=== PATIENT | male | born 2005 | race Caucasian/White ===

== ENCOUNTER 2024-07-18 20:43 | Emergency (ER) | payer BC, SELFPAY ==
[2024-07-18 20:45] VITALS: BP 134/89
--- NOTE | 2024-07-18 21:16 | ED.GENMED ---
History of Present Illness
General
Chief Complaint: Crisis Evaluation
Time Seen by Provider: 07/18/24 21:02
History of Present Illness
History of Present Illness:
TIME OF INITIAL ENCOUNTER: 9:10 PM
HPI: The patient was brought here by his father due to self-harm and suicidal ideation. The patient states that he had an argument or had issues with his girlfriend. He has no guns at home. The patient started punching himself. He did have a
partial hospitalization in the past. He denies any medical complaints.
EXAM:
GENERAL: Well appearing in no distress
HEENT: Moist oral mucosa
CARDIOVASCULAR: No murmurs, normal heart rate, regular rhythm, No chest wall tenderness
PULMONARY: No respiratory distress, breath sounds are clear and equal
ABDOMEN: Soft with no peritoneal signs, no tenderness
NEUROLOGIC: Excellent strength all extremities, no coordination deficits
PSYCHIATRIC: Appropriate mental status, normal insight and judgement, but has somewhat of a flat affect
EXTREMITIES: Nontender, no edema, moves all extremities equally
SKIN: No rash, no lesions
NUMBER AND COMPLEXITY OF PROBLEMS ADDRESSED AT THE ENCOUNTER
� Chronic conditions affecting care: No significant past medical history
� Acute Exacerbation and/or Progression of Chronic Illness: This is an acute problem
� Differential Diagnosis includes: Suicidal ideation, depression
AMOUNT AND/OR COMPLEXITY OF DATA TO BE REVIEWED AND ANALYZED
� I performed an independent evaluation of and my interpretation is:
EKG:
CT:
X-rays:
Laboratory Studies:
Other:
� Review of other/old records: No old records available for review in [facility]
� Clinical information was obtained by an independent historian: I spoke to the father at bedside
� Prescriptions/Medications Considered but not given:
� Further testing considered but not performed: No indication for blood work or other testing at this time
RISK OF COMPLICATIONS AND/OR MORBIDITY OR MORTALITY OF PATIENT MANAGEMENT
� Social determinants of health affecting care: Lives at home
� Discussion with other providers: Crisis recommend that he continues follow-up with his therapist.
� Escalation of care including admission/observation vs risk of discharge considered: The patient states that he was trying to punch himself earlier but otherwise has no plan of harming himself. He has been going through some
problems with his girlfriend.
ANY OTHER UPDATES:
Phy Exam
Physical Exam
Physical Exam:
See HPI
Course
Orders/Labs/Results
Orders:
Orders
07/18/24 20:48
1:1 Observation - Suicide/ Violent Behavior As Directed
Crisis Consult Urgent
Reason for Consult: suicidal ideation
Vital Signs
Initial and Last Documented VS:
Initial Vital Signs
Temp Pulse Resp BP Pulse Ox
37.2 C 82 16 134/89 100
07/18/24 20:45 07/18/24 20:45 07/18/24 20:45 07/18/24 20:45 07/18/24 20:45
Last Documented Vital Signs
Temp Pulse Resp BP Pulse Ox
37.2 C 82 16 134/89 100
07/18/24 20:45 07/18/24 20:45 07/18/24 20:45 07/18/24 20:45 07/18/24 21:14
*Critical Care Note
Total Time (30-74mins, 75-104mins- exclusive of procedures): Not Applicable
ED Attending Note
-
Portions of this chart may have been created with voice recognition software.� Occasional wrong word or��sound alike� substitutions may have occurred due to the inherent limitations of voice recognition software.
Discharge Plan
Departure
Patient Disposition: Home (Routine Discharge)
Date of Disposition: 07/18/24
Time of Disposition: 21:52
Patient with high blood pressure during this ER visit?: Yes
Discharge Problem:
Depression
Instructions: Depression, Adult (DC)
Activity Restrictions/Additional Instructions:
You were seen by crisis. The recommendation was for you to follow with your therapist. Return here if worse or other concerns.
Interventions
Interventions:
*Risk Screen - Suicide Last Done: 07/18/24 20:45
*General Assessment Last Done: 07/18/24 20:45
*Neglect/Abuse Screening Last Done: 07/18/24 20:45
ED- Fall Risk Assessment Last Done: 07/18/24 21:14
*ED COVID-19 Vaccine History Last Done: 07/18/24 21:13
ED-Psychological Assessment Last Done: 07/18/24 21:14
Discharge Date and Time
Print Language: ROMANSH
[2024-07-18 21:19] VITALS: BMI 28.2
== END 2024-07-18 22:18 | disposition home or self-care (01) ==
LOC: EMR 20:43
PROVIDERS: EMERGENCY PHYSICIAN Emergency Medicine
DX: F32.A Depression, unspecified (principal); R45.851 Suicidal ideations
CPT/HCPCS: 99283